=== PATIENT | male | born 1970 | race Caucasian/White ===

== ENCOUNTER 2024-03-24 15:29 | Outpatient (CLI) | payer BC ==
[~2024-03-24] VITALS: Ht 188 cm; Wt 152.0 kg
[2024-03-24] MEDS: albuterol 2.5 MG/3 ML nebule NEB ONE (15:58)
[2024-03-24 15:59] VITALS: PULSE 102; RESP 16; O2SAT 0
[2024-03-24 16:10] VITALS: PULSE 112; RESP 16
== END 2024-03-24 23:59 | disposition home or self-care (01) ==
LOC: RT 15:29
PROVIDERS: ATTEND Family Medicine
DX: R06.02 Shortness of breath (principal)
CPT/HCPCS: 94060; 94760